=== PATIENT | male | born 1950 | race Caucasian/White ===

== ENCOUNTER 2020-10-07 12:42 | Outpatient (CLI) | payer MEDICARE ==
[~2020-10-07 12:42] MED LIST: LIDOCAINE-MPF 1%, 5ML ONE; ROPivacaine/PF 0.2%, 10 ML ONE; SODIUM BICARBONATE 4.2%, 5ML ONE
[2020-10-07] MEDS ORDERED: LIDOCAINE-MPF 1%, 5ML ONE (14:11)
[2020-10-07] MEDS ORDERED: GADOTERATE 5 MMOL/10 ML VIAL ONE (14:14)
[2020-10-07] MEDS ORDERED: OMNIPAQUE 300 MG/ML, 10ML VIAL ONE (14:14)
== END 2020-10-07 23:59 | disposition home or self-care (01) ==
LOC: RAD 12:42
PROVIDERS: ATTEND Orthopaedic Surgery
DX: M25.552 Pain in left hip (principal); M24.152 Other articular cartilage disorders, left hip; M94.252 Chondromalacia, left hip
CPT/HCPCS: 27093; 73525; 73722; A9575; J2795; Q9967